=== PATIENT | male | born 1965 | race Caucasian/White ===

== ENCOUNTER 2017-03-25 18:39 | Inpatient (IN) | payer SELFPAY ==
[~2017-03-25] VITALS: Ht 182.9 cm; Wt 75.3 kg
[2017-03-25] MEDS ORDERED: IV NORMAL SALINE 1000ML BAG 1,000 ML IV ONE (19:00)
[2017-03-25] MEDS ORDERED: MORPHINE SULFATE 4 MG/ML DISP.SYRIN. IV PRN ×2 (19:00)
[2017-03-25] MEDS ORDERED: fentaNYL PF VIAL 100 MCG/2 ML VIAL IV PRN ×2 (19:00)
[2017-03-25] MEDS: PROPOFOL 100 ML IV PRN (19:00)
[2017-03-25 19:10] LABS: BASO % 0 % (0-3); EOS % 5 % (0-3); HEMATOCRIT 48.6 % (39.0-53.0); HEMOGLOBIN 16.7 g/dL (13.0-17.5); LYMPH # 5.4 x10^3/uL (1.0-4.8); LYMPH % 44 % (24-48); MEAN CORPUSCULAR HEMOGLOBIN 32 pg (25-35); MEAN CORPUSCULAR HGB CONC 34 g/dL (31-37); MEAN CORPUSCULAR VOLUME 93 fL (79-100); MONO % 11 % (0-9); NEUT % 41 % (31-73); PLATELET COUNT 294 x10^3/uL (140-400); RED BLOOD COUNT 5.25 x10^6/uL (4.30-5.70); RED CELL DISTRIBUTION WIDTH 13.7 % (11.5-14.5); WHITE BLOOD COUNT 12.3 x10^3/uL (4.0-11.0)
[2017-03-25] MEDS ORDERED: SUCCINYLCHOLINE 200 MG/10 ML VIAL. IV ONE (19:15)
[2017-03-25] MEDS ORDERED: ETOMIDATE 20 MG/10 ML VIAL. IV ONE (19:15)
[2017-03-25 19:22] LABS: ANION GAP 12 (6-14); BLOOD UREA NITROGEN 10 mg/dL (8-26); CALCIUM 8.7 mg/dL (8.5-10.1); CARBON DIOXIDE 28 mmol/L (21-32); CHLORIDE 107 mmol/L (98-107); CREATININE 0.8 mg/dL (0.7-1.3); GFR 102.3; GLUCOSE 95 mg/dL (70-99); POTASSIUM 3.7 mmol/L (3.5-5.1); SODIUM 147 mmol/L (136-145)
[2017-03-25 19:28] LABS: ALBUMIN 3.7 g/dL (3.4-5.0); ALK PHOS 66 U/L (46-116); ALT (SGPT) 52 U/L (16-63); AST (SGOT) 34 U/L (15-37); DIRECT BILIRUBIN < 0.1 mg/dL (0.0-0.2); TOTAL BILIRUBIN 0.2 mg/dL (0.2-1.0); TOTAL PROTEIN 7.4 g/dL (6.4-8.2)
[2017-03-25 19:35] LABS: ETHANOL 472 mg/dL (0-10)
[2017-03-25 19:44] LABS: BILIRUBIN,URINE NEGATIVE (NEG); GLUCOSE,URINE NEGATIVE (NEG); NITRITE,URINE NEGATIVE (NEG); PH,URINE 5.5; PROTEIN,URINE NEGATIVE (NEG-TRACE); UROBILINOGEN,URINE 0.2 mg/dL (0.2 mg/dL)
--- NOTE | 2017-03-25 19:44 | RAD ---
CT of the head without contrast History:decreased mental status, etoh, intubated, no priors. Intoxication. Decreased mental status. Technique: Standard noncontrast images are obtained. Exposure: One or more of the following individualized dose reduction techniques were utilized for this examination: 1. Automated exposure control 2. Adjustment of the mA and/or kV according to patient size 3. Use of iterative reconstruction technique. Comparison: None Findings: Posterior fossa is unremarkable. No evidence of acute intracranial hemorrhage, mass effect, midline shift or abnormal extra-axial fluid collection. Redman-white matter distinction is intact. Ventricles unremarkable and symmetric Visualized orbits are unremarkable. Visualized paranasal sinuses and mastoids are clear. No acute calvarial abnormality Impression: No evidence of acute intracranial abnormality. Electronically signed by: Gene Walden MD (03/25/2017 7:40 PM) [facility]
[2017-03-25 19:49] LABS: BACTERIA,URINE 0 /HPF (0-FEW); RBC,URINE OCC /HPF (0-2); WBC,URINE OCC /HPF (0-4)
[2017-03-25 19:51] LABS: BARBITURATES NEG (NEG); BENZODIAZEPINES NEG (NEG); CANNABINOIDS NEG (NEG); COCAINE NEG (NEG); METHADONE NEG (NEG); OPIATES NEG (NEG); PHENCYCLIDINE NEG (NEG)
--- NOTE | 2017-03-25 19:55 | PHYS DOC ---
Past Medical History Past Medical History: Unknown Additional Past Surgical Histo: UNABLE TO ASSESS Alcohol Use: Heavy Social History Narrative: UNKNOWN DRUG USE Adult General Chief Complaint Chief Complaint: ALCOHOL INTOXICATION HPI HPI 51-year-old male with a history of alcoholism presenting to the emergency department today by EMS after being found unresponsive. The patient reportedly has been drinking a lot of vodka today. Bystanders on the scene deny the patient have any drug history of IV drug use. Upon arrival the patient tolerating his secretions and is not protecting his airway. He does not withdraw to painful stimuli. He does not open his eyes to painful stimuli. He makes no verbal sounds. He is drooling upon arrival. Unfortunately because of the patient's mental status no further history could be given other than EMSs at this time. Onset today. Location generalized. Duration constant. No alleviating factors. Medical history, allergy list, surgical history, social history and review of systems were unable be fluid be obtained because the patient is currently unable to speak because of his mental status. The only available historians currently are EMS who are unsure of this information. ED course 51-year-old gentleman presenting to the emergency department with severe alcohol intoxication. Upon arrival the patient was not protecting his airway so the patient was intubated. Head CT, blood sugar, aspirin and Tylenol, and other blood work obtained which showed significant alcohol intoxication. There is not an osmolar gap. History not suggestive of overdose. no bottles at the scene or suicide note. Tylenol negative. Aspirin level minimal. CO2 normal. ABG obtained which showed mild acute respiratory acidosis. Then settings changed by respiratory therapy. Otherwise remainder of the workup is unremarkable including a negative head CT. Postintubation chest x-ray obtained and endotracheal tube is in satisfactory position. The patient was then admitted to our intensive care unit for further evaluation workup and care. Review of Systems Review of Systems See above Current Medications Current Medications Current Medications Medications (Trade) Dose Ordered Sig/Mike Start Time Stop Time Status Last Admin Dose Admin Etomidate (Amidate) 20 mg 1X ONCE 03/25/17 19:15 03/25/17 19:16 DC 03/25/17 18:53 20 MG Fentanyl Citrate (Fentanyl 2ml Vial) 50 mcg PRN Q1HR PRN 03/25/17 19:00 Morphine Sulfate 4 mg PRN Q1HR PRN 03/25/17 19:00 Propofol 100 ml @ 0 mls/hr CONT PRN 03/25/17 19:00 03/25/17 19:00 2.4 MLS/HR Sodium Chloride 1,000 ml @ 1,000 mls/hr 1X ONCE 03/25/17 19:00 03/25/17 19:59 DC 03/25/17 19:00 1,000 MLS/HR Succinylcholine Chloride (Anectine) 100 mg 1X ONCE 03/25/17 19:15 03/25/17 19:16 DC 03/25/17 18:53 100 MG Allergies Allergies Allergies Coded Allergies Type Severity Reaction Last Updated Verified Unable to Assess 03/25/17 No Physical Exam Physical Exam Constitutional: Well developed, well nourished, no acute distress, non-toxic appearance. [] HENT: Normocephalic, atraumatic, bilateral external ears normal, oropharynx moist, no oral exudates, nose normal. [] Eyes: PERRLA, EOMI, conjunctiva normal, no discharge. [] Neck: Normal range of motion, no tenderness, supple, no stridor. [] Cardiovascular:Heart rate regular rhythm, no murmur [] Lungs & Thorax: Bilateral breath sounds clear to auscultation [] Abdomen: Bowel sounds normal, soft, no tenderness, no masses, no pulsatile masses. [] Skin: Warm, dry, no erythema, no rash. [] Back: No tenderness, no CVA tenderness. [] Extremities: No tenderness, no cyanosis, no clubbing, ROM intact, no edema. [] Neurologic: Alert and oriented X 3, normal motor function, normal sensory function, no focal deficits noted. [] Psychologic: Affect normal, judgement normal, mood normal. [] Current Patient Data Vital Signs Vital Signs Date Time Temp Pulse Resp B/P (MAP) Pulse Ox O2 Delivery O2 Flow Rate FiO2 03/25/17 19:37 88 20 123/80 (94) 100 Ventilator 03/25/17 18:57 15.0 03/25/17 18:40 97.4 97.4 Lab Values Laboratory Tests Test 03/25/17 18:42 03/25/17 18:57 03/25/17 19:39 White Blood Count 12.3 x10^3/uL (4.0-11.0) H Red Blood Count 5.25 x10^6/uL (4.30-5.70) Hemoglobin 16.7 g/dL (13.0-17.5) Hematocrit 48.6 % (39.0-53.0) Mean Corpuscular Volume 93 fL (79-100) Mean Corpuscular Hemoglobin 32 pg (25-35) Mean Corpuscular Hemoglobin Concent 34 g/dL (31-37) Red Cell Distribution Width 13.7 % (11.5-14.5) Platelet Count 294 x10^3/uL (140-400) Neutrophils (%) (Auto) 41 % (31-73) Lymphocytes (%) (Auto) 44 % (24-48) Monocytes (%) (Auto) 11 % (0-9) H Eosinophils (%) (Auto) 5 % (0-3) H Basophils (%) (Auto) 0 % (0-3) Neutrophils # (Auto) 5.0 x10^3uL (1.8-7.7) Lymphocytes # (Auto) 5.4 x10^3/uL (1.0-4.8) H Monocytes # (Auto) 1.3 x10^3/uL (0.0-1.1) H Eosinophils # (Auto) 0.6 x10^3/uL (0.0-0.7) Basophils # (Auto) 0.0 x10^3/uL (0.0-0.2) Prothrombin Time 13.0 SEC (11.7-14.0) Prothrombin Time INR 1.0 (0.8-1.1) PTT 26 SEC (24-38) Sodium Level 147 mmol/L (136-145) H Potassium Level 3.7 mmol/L (3.5-5.1) Chloride Level 107 mmol/L (98-107) Carbon Dioxide Level 28 mmol/L (21-32) Anion Gap 12 (6-14) Blood Urea Nitrogen 10 mg/dL (8-26) Creatinine 0.8 mg/dL (0.7-1.3) Estimated GFR (Cockcroft-Gault) 102.3 Glucose Level 95 mg/dL (70-99) Serum Osmolality 426 mOsm/Kg (279-304) H Calcium Level 8.7 mg/dL (8.5-10.1) Total Bilirubin 0.2 mg/dL (0.2-1.0) Direct Bilirubin < 0.1 mg/dL (0.0-0.2) Aspartate Amino Transferase (AST) 34 U/L (15-37) Alanine Aminotransferase (ALT) 52 U/L (16-63) Alkaline Phosphatase 66 U/L (46-116) Total Protein 7.4 g/dL (6.4-8.2) Albumin 3.7 g/dL (3.4-5.0) Lipase 286 U/L (73-393) Salicylates Level 6.0 mg/dL (2.8-20.0) Salicylate Last Dose Date Salicylate Last Dose Time Acetaminophen Level < 2 mcg/ml (10-30) L Acetaminophen Last Dose Date Acetaminophen Last Dose Time Ethyl Alcohol Level 472 mg/dL (0-10) *H O2 Saturation 99 % (92-99) Arterial Blood pH 7.26 (7.35-7.45) L Arterial Blood pCO2 at Patient Temp 59 mmHg (35-46) H Arterial Blood pO2 at Patient Temp > 503 mmHg (75-108) H Arterial Blood HCO3 26 mmol/L (21-28) Arterial Blood Base Excess -2 mmol/L (-3-3) Oxyhemoglobin 98.1 % Methemoglobin 0.4 % (0.0-1.9) Carbon Monoxide, Quantitative 0.7 % (0.0-1.9) FiO2 100.0 Urine Collection Type Unknown Urine Color Yellow Urine Clarity Clear Urine pH 5.5 Urine Specific Gratis 1.010 Urine Protein Negative mg/dL (NEG-TRACE) Urine Glucose (UA) Negative mg/dL (NEG) Urine Ketones (Stick) Negative mg/dL (NEG) Urine Blood Negative (NEG) Urine Nitrite Negative (NEG) Urine Bilirubin Negative (NEG) Urine Urobilinogen Dipstick 0.2 mg/dL (0.2 mg/dL) Urine Leukocyte Esterase Negative (NEG) Urine RBC Occ /HPF (0-2) Urine WBC Occ /HPF (0-4) Urine Bacteria 0 /HPF (0-FEW) Urine Mucus Slight /LPF Urine Opiates Screen Neg (NEG) Urine Methadone Screen Neg (NEG) Urine Barbiturates Neg (NEG) Urine Phencyclidine Screen Neg (NEG) Urine Amphetamine/Methamphetamine Neg (NEG) Urine Benzodiazepines Screen Neg (NEG) Urine Cocaine Screen Neg (NEG) Urine Cannabinoids Screen Neg (NEG) Urine Ethyl Alcohol Pos (NEG) Laboratory Tests 03/25/17 18:42 Laboratory Tests 03/25/17 18:42 EKG EKG [] Radiology/Procedures Radiology/Procedures [] Course & Med Decision Making Course & Med Decision Making Pertinent Labs and Imaging studies reviewed. (See chart for details) [] Dragon Disclaimer Dragon Disclaimer This electronic medical record was generated, in whole or in part, using a voice recognition dictation system. Departure Departure Referrals: NO PCP (PCP) Critical Care Time Critical care time was [35] minutes exclusive of procedures. Time was spent evaluating the patient, reviewing chest x-ray, reviewing blood work, discussing with the meaning provider, and documenting. Intubation Procedure Intubation Procedure Intub Indication: Respiratory failure Consent: Unable to give consent due to emergent nature. Medications Used: see nursing note Procedure: The patient was placed in the appropriate position. Intubation was performed visualization using a 7-1/2 endotracheal tube. Endotracheal tube secured at 2 6 cm at the teeth. Initial confirmation of placement included bilateral breath sounds, tube fogging, adequate chest rise, adequate pulse oximetry reading. A chest x-ray to verify correct placement of the tube showed appropriate tube position. The patient tolerated the procedure well. Complications: none. GALE HINKLE MD Mar 25, 2017 19:55
[2017-03-25 19:57] LABS: BASE EXCESS COOX -2 mmol/L (-3-3); CARBON MONOXIDE 0.7 % (0.0-1.9); HCO3 COOX 26 mmol/L (21-28); METHEMOGLOBIN 0.4 % (0.0-1.9); OXYHEMOGLOBIN 98.1 %; PCO2 COOX 59 mmHg (35-46); PH COOX 7.26 (7.35-7.45); PO2 COOX > 503 mmHg (75-108); SAT O2 COOX 99 % (92-99); TOTAL HEMOGLOBIN 16.6 g/dL
--- NOTE | 2017-03-25 19:59 | PDOC1 ---
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 NO family at bedside, rest of labs pending, CBC WBC 12,3 , BMP pending, CXR ok Propofol gtt with good VS No prev records here Past Medical History Cardiovascular: No pertinent hx Pulmonary: No pertinent hx GI: No pertinent hx Heme/Onc: No pertinent hx Hepatobiliary: No pertinent hx Psych: No pertinent hx Rheumatologic: No pertinent hx Infectious disease: No pertinent hx ENT: No pertinent hx Renal/: No pertinent hx Endocrine: No pertinent hx Dermatology: No pertinent hx Past Surgical History Past Surgical History: No pertinent history Family History Family History: Family History Unknown Social History Smoke: No ALCOHOL: heavy Drugs: None Current Medications Current Medications Current Medications Sodium Chloride 1,000 ml @ 1,000 mls/hr 1X ONCE IV Last administered on 03/25 19:00; Start 03/25/17 at 19:00; Stop 03/25/17 at 19:59 Etomidate (Amidate) 20 mg 1X ONCE IV Last administered on 03/25/17 18:53; Start 03/25/17 at 19:15; Stop 03/25/17 at 19:16; Status DC Succinylcholine Chloride (Anectine) 100 mg 1X ONCE IV Last administered on 18:53; Start 03/25/17 at 19:15; Stop 03/25/17 at 19:16; Status DC Propofol 100 ml @ 0 mls/hr CONT PRN IV PER PROTOCOL Last administered on 19:00; Start 03/25/17 at 19:00 Fentanyl Citrate (Fentanyl 2ml Vial) 25 mcg PRN Q1HR PRN IV see comments; Start 03/25/17 at 19:00 Fentanyl Citrate (Fentanyl 2ml Vial) 50 mcg PRN Q1HR PRN IV see comments; Start 03/25/17 at 19:00 Chlorhexidine Gluconate (Peridex) 15 ml BID MM ; Start 03/25/17 at 21:00 Morphine Sulfate 2 mg PRN Q1HR PRN IV see comments; Start 03/25/17 at 19:00 Morphine Sulfate 4 mg PRN Q1HR PRN IV see comments; Start 03/25/17 at 19:00 Allergies Allergies: Coded Allergies: Unable to Assess (Unverified , 03/25/17) ROS Review of System intubated Physical Exam General: No acute distress, Other (intubated) HEENT: PERRLA Lungs: Clear to auscultation, Normal air movement Heart: S1S2, RRR, no thrills, no rubs, no gallops, no murmurs Cardiovascular: S1, S2 Abdomen: Normal bowel sounds, Soft, No tenderness, No hepatosplenomegaly, No masses Male Genitals Exam: normal genitalia, normal prostate Rectal Exam: not examined PELVIC: Nml ext genitalia Extremities: No clubbing, No cyanosis, No edema, Normal pulses, No tenderness/ swelling Skin: Other (multiple tattoes) Neuro: Normal gait, Normal speech, Strength at 5/5 X4 ext, Normal tone, Sensation intact, Cranial nerves 3-12 NL, Reflexes 2+ Psych/Mental Status: Mental status NL, Mood NL Vitals Vitals Vital Signs Date Time Temp Pulse Resp B/P (MAP) Pulse Ox O2 Delivery O2 Flow Rate FiO2 03/25/17 19:41 100 Ventilator 03/25/17 18:40 97.4 87 16 130/98 (109) 15.0 97.4 Labs Labs Laboratory Tests Test 03/25/17 18:42 03/25/17 19:39 White Blood Count 12.3 x10^3/uL (4.0-11.0) Red Blood Count 5.25 x10^6/uL (4.30-5.70) Hemoglobin 16.7 g/dL (13.0-17.5) Hematocrit 48.6 % (39.0-53.0) Mean Corpuscular Volume 93 fL (79-100) Mean Corpuscular Hemoglobin 32 pg (25-35) Mean Corpuscular Hemoglobin Concent 34 g/dL (31-37) Red Cell Distribution Width 13.7 % (11.5-14.5) Platelet Count 294 x10^3/uL (140-400) Neutrophils (%) (Auto) 41 % (31-73) Lymphocytes (%) (Auto) 44 % (24-48) Monocytes (%) (Auto) 11 % (0-9) Eosinophils (%) (Auto) 5 % (0-3) Basophils (%) (Auto) 0 % (0-3) Neutrophils # (Auto) 5.0 x10^3uL (1.8-7.7) Lymphocytes # (Auto) 5.4 x10^3/uL (1.0-4.8) Monocytes # (Auto) 1.3 x10^3/uL (0.0-1.1) Eosinophils # (Auto) 0.6 x10^3/uL (0.0-0.7) Basophils # (Auto) 0.0 x10^3/uL (0.0-0.2) Prothrombin Time 13.0 SEC (11.7-14.0) Prothromb Time International Ratio 1.0 (0.8-1.1) Activated Partial Thromboplast Time 26 SEC (24-38) Sodium Level 147 mmol/L (136-145) Potassium Level 3.7 mmol/L (3.5-5.1) Chloride Level 107 mmol/L (98-107) Carbon Dioxide Level 28 mmol/L (21-32) Anion Gap 12 (6-14) Blood Urea Nitrogen 10 mg/dL (8-26) Creatinine 0.8 mg/dL (0.7-1.3) Estimated GFR (Cockcroft-Gault) 102.3 Glucose Level 95 mg/dL (70-99) Serum Osmolality 426 mOsm/Kg (279-304) Calcium Level 8.7 mg/dL (8.5-10.1) Total Bilirubin 0.2 mg/dL (0.2-1.0) Direct Bilirubin < 0.1 mg/dL (0.0-0.2) Aspartate Amino Transf (AST/SGOT) 34 U/L (15-37) Alanine Aminotransferase (ALT/SGPT) 52 U/L (16-63) Alkaline Phosphatase 66 U/L (46-116) Total Protein 7.4 g/dL (6.4-8.2) Albumin 3.7 g/dL (3.4-5.0) Lipase 286 U/L (73-393) Salicylates Level 6.0 mg/dL (2.8-20.0) Salicylate Last Dose Date Salicylate Last Dose Time Acetaminophen Level < 2 mcg/ml (10-30) Acetaminophen Last Dose Date Acetaminophen Last Dose Time Ethyl Alcohol Level 472 mg/dL (0-10) Urine Collection Type Unknown Urine Color Yellow Urine Clarity Clear Urine pH 5.5 Urine Specific Hennessey 1.010 Urine Protein Negative mg/dL (NEG-TRACE) Urine Glucose (UA) Negative mg/dL (NEG) Urine Ketones (Stick) Negative mg/dL (NEG) Urine Blood Negative (NEG) Urine Nitrite Negative (NEG) Urine Bilirubin Negative (NEG) Urine Urobilinogen Dipstick 0.2 mg/dL (0.2 mg/dL) Urine Leukocyte Esterase Negative (NEG) Urine RBC Occ /HPF (0-2) Urine WBC Occ /HPF (0-4) Urine Bacteria 0 /HPF (0-FEW) Urine Mucus Slight /LPF Urine Opiates Screen Neg (NEG) Urine Methadone Screen Neg (NEG) Urine Barbiturates Neg (NEG) Urine Phencyclidine Screen Neg (NEG) Urine Amphetamine/Methamphetamine Neg (NEG) Urine Benzodiazepines Screen Neg (NEG) Urine Cocaine Screen Neg (NEG) Urine Cannabinoids Screen Neg (NEG) Urine Ethyl Alcohol Pos (NEG) Laboratory Tests Test 03/25/17 18:42 03/25/17 19:39 White Blood Count 12.3 x10^3/uL (4.0-11.0) Red Blood Count 5.25 x10^6/uL (4.30-5.70) Hemoglobin 16.7 g/dL (13.0-17.5) Hematocrit 48.6 % (39.0-53.0) Mean Corpuscular Volume 93 fL (79-100) Mean Corpuscular Hemoglobin 32 pg (25-35) Mean Corpuscular Hemoglobin Concent 34 g/dL (31-37) Red Cell Distribution Width 13.7 % (11.5-14.5) Platelet Count 294 x10^3/uL (140-400) Neutrophils (%) (Auto) 41 % (31-73) Lymphocytes (%) (Auto) 44 % (24-48) Monocytes (%) (Auto) 11 % (0-9) Eosinophils (%) (Auto) 5 % (0-3) Basophils (%) (Auto) 0 % (0-3) Neutrophils # (Auto) 5.0 x10^3uL (1.8-7.7) Lymphocytes # (Auto) 5.4 x10^3/uL (1.0-4.8) Monocytes # (Auto) 1.3 x10^3/uL (0.0-1.1) Eosinophils # (Auto) 0.6 x10^3/uL (0.0-0.7) Basophils # (Auto) 0.0 x10^3/uL (0.0-0.2) Prothrombin Time 13.0 SEC (11.7-14.0) Prothromb Time International Ratio 1.0 (0.8-1.1) Activated Partial Thromboplast Time 26 SEC (24-38) Sodium Level 147 mmol/L (136-145) Potassium Level 3.7 mmol/L (3.5-5.1) Chloride Level 107 mmol/L (98-107) Carbon Dioxide Level 28 mmol/L (21-32) Anion Gap 12 (6-14) Blood Urea Nitrogen 10 mg/dL (8-26) Creatinine 0.8 mg/dL (0.7-1.3) Estimated GFR (Cockcroft-Gault) 102.3 Glucose Level 95 mg/dL (70-99) Serum Osmolality 426 mOsm/Kg (279-304) Calcium Level 8.7 mg/dL (8.5-10.1) Total Bilirubin 0.2 mg/dL (0.2-1.0) Direct Bilirubin < 0.1 mg/dL (0.0-0.2) Aspartate Amino Transf (AST/SGOT) 34 U/L (15-37) Alanine Aminotransferase (ALT/SGPT) 52 U/L (16-63) Alkaline Phosphatase 66 U/L (46-116) Total Protein 7.4 g/dL (6.4-8.2) Albumin 3.7 g/dL (3.4-5.0) Lipase 286 U/L (73-393) Salicylates Level 6.0 mg/dL (2.8-20.0) Salicylate Last Dose Date Salicylate Last Dose Time Acetaminophen Level < 2 mcg/ml (10-30) Acetaminophen Last Dose Date Acetaminophen Last Dose Time Ethyl Alcohol Level 472 mg/dL (0-10) Urine Collection Type Unknown Urine Color Yellow Urine Clarity Clear Urine pH 5.5 Urine Specific Hennessey 1.010 Urine Protein Negative mg/dL (NEG-TRACE) Urine Glucose (UA) Negative mg/dL (NEG) Urine Ketones (Stick) Negative mg/dL (NEG) Urine Blood Negative (NEG) Urine Nitrite Negative (NEG) Urine Bilirubin Negative (NEG) Urine Urobilinogen Dipstick 0.2 mg/dL (0.2 mg/dL) Urine Leukocyte Esterase Negative (NEG) Urine RBC Occ /HPF (0-2) Urine WBC Occ /HPF (0-4) Urine Bacteria 0 /HPF (0-FEW) Urine Mucus Slight /LPF Urine Opiates Screen Neg (NEG) Urine Methadone Screen Neg (NEG) Urine Barbiturates Neg (NEG) Urine Phencyclidine Screen Neg (NEG) Urine Amphetamine/Methamphetamine Neg (NEG) Urine Benzodiazepines Screen Neg (NEG) Urine Cocaine Screen Neg (NEG) Urine Cannabinoids Screen Neg (NEG) Urine Ethyl Alcohol Pos (NEG) VTE Prophylaxis Ordered VTE Prophylaxis Devices: Yes VTE Pharmacological Prophylaxi: Yes Assessment/Plan Assessment/Plan 1. Acute toxic alcohol intox intubated for airway protection 2. Inc serum osmolality sec to etoh 3 MIld to moc pCM, highly likely 4. Mltiple tatooes PLAN; Admit ICU Pulmo for vent mx Vent bundle PPI and dvt ppx CIWa when extubated Needs SW for AAA referrral Seen in ER 1 NUVIA THOMPSON MD Mar 25, 2017 19:59
[2017-03-25 21:00] VITALS: BP 86/57
[2017-03-25] MEDS ORDERED: THIAMINE IV SCH (21:00)
[2017-03-25] MEDS ORDERED: [UNRECOGNIZED DRUG - OTHER] IV SCH (21:00)
[2017-03-25] MEDS ORDERED: MULTIVIT INFUSN ADULT K IV SCH (21:00)
[2017-03-25 22:00] VITALS: BP 80/53
[2017-03-25 23:00] VITALS: BP 85/58
[2017-03-26] VITALS (18 sets, daily range): BP systolic 91–140; BP diastolic 58–80
[2017-03-26] MEDS: CHLORHEXIDINE 0.12% 15 ML MOUTHWASH. MM SCH ×3 (00:18→21:00)
[2017-03-26 00:19] LABS: HCO3 ABG 23 mmol/L (21-28); PCO2 ABG 44 mmHg (35-46); PH ABG 7.33 (7.35-7.45); PO2 ABG 109 mmHg (75-108); SAT O2 ABG 97 % (92-99)
[2017-03-26] MEDS: ENOXAPARIN 40 MG/0.4 ML SYRINGE. SQ SCH ×2 (00:19→22:26)
[2017-03-26] MEDS: FAMOTIDINE 20 MG/2 ML VIAL IVP SCH ×3 (00:20→22:27)
[2017-03-26 00:25] LABS: FIO2 ABG 50
[2017-03-26] MEDS: PROPOFOL 100 ML IV PRN ×4 (00:28→10:55)
--- NOTE | 2017-03-26 06:35 | EKG ---
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
[2017-03-26 08:02] LABS: HCO3 ABG 23 mmol/L (21-28); PCO2 ABG 40 mmHg (35-46); PH ABG 7.37 (7.35-7.45); PO2 ABG 141 mmHg (75-108); SAT O2 ABG 98 % (92-99)
[2017-03-26 08:04] LABS: FIO2 ABG 50
--- NOTE | 2017-03-26 08:06 | RAD ---
Portable chest, 03/25/2017, 7:22 PM History: Check line placement, chest pain No previous chest radiographs are available for comparison purposes. The tip of the ET tube lies at the level of thoracic inlet, approximately 12 cm above the mary jane. The tip of the NG tube lies in the distal esophagus. A partially visualized tube projected over the lateral aspect of the right upper chest may lie on the surface of the patient. Clinical correlation is suggested. The heart size and pulmonary vascularity are within normal limits. There is a small nodule projected over the left lower chest laterally. This may be a nipple shadow or a true pulmonary nodule. No pulmonary consolidation is seen. There is no evidence of pleural fluid. Moderate spurring is present in the spine. IMPRESSION: 1. High position of the ET tube and the NG tube as described above. 2. Probable left lung nodule. 3. No acute infiltrates.
[2017-03-26 08:16] LABS: BASO % 0 % (0-3); EOS % 3 % (0-3); HEMATOCRIT 42.6 % (39.0-53.0); HEMOGLOBIN 14.3 g/dL (13.0-17.5); LYMPH # 2.8 x10^3/uL (1.0-4.8); LYMPH % 27 % (24-48); MEAN CORPUSCULAR HEMOGLOBIN 31 pg (25-35); MEAN CORPUSCULAR HGB CONC 34 g/dL (31-37); MEAN CORPUSCULAR VOLUME 93 fL (79-100); MONO % 9 % (0-9); NEUT % 62 % (31-73); PLATELET COUNT 256 x10^3/uL (140-400); RED BLOOD COUNT 4.58 x10^6/uL (4.30-5.70); RED CELL DISTRIBUTION WIDTH 13.8 % (11.5-14.5); WHITE BLOOD COUNT 10.3 x10^3/uL (4.0-11.0)
[2017-03-26 08:35] LABS: ALBUMIN 3.1 g/dL (3.4-5.0); ALBUMIN/GLOBULIN RATIO 0.9 (1.0-1.7); CALCIUM 7.8 mg/dL (8.5-10.1); CREATININE 0.8 mg/dL (0.7-1.3); GFR 102.3; POTASSIUM 3.6 mmol/L (3.5-5.1); TOTAL BILIRUBIN 0.1 mg/dL (0.2-1.0); TOTAL PROTEIN 6.4 g/dL (6.4-8.2)
--- NOTE | 2017-03-26 09:12 | RAD ---
Portable chest, 03/25/2017, 7:31 PM: History: Check tube placements Comparison is made to the study of earlier the same day. The ET tube has been advanced with its tip now lying 8 cm above the mary jane. The NG tube has been advanced slightly, although its tip still lies in the distal esophagus above the level of the GE junction. The heart size and pulmonary vascularity are normal. No pulmonary infiltrates are seen. A nodular opacity is again noted projected over left lower chest. There is no evidence of pleural fluid or pneumothorax. IMPRESSION: 1. The ET tube tip now lies 8 cm above the mary jane. 2. Persistent malposition of the NG tube with its tip lying in the distal esophagus.
--- NOTE | 2017-03-26 09:15 | PDOC ---
PROGRESS NOTES Chief Complaint Chief Complaint acute respiratory acidosis acute hypercarbic respiratory failure Acute toxic alcohol intox intubated for airway protection hyper osmolality sec to etoh History of Present Illness History of Present Illness Admitted ICU Pulmo for vent mx Vent bundle, on propofol, will wean aggressive fluids this AM Vitals Vitals Vital Signs Date Time Temp Pulse Resp B/P (MAP) Pulse Ox O2 Delivery O2 Flow Rate FiO2 03/26/17 07:38 100 Ventilator 03/26/17 06:14 15.0 03/26/17 06:00 78 20 100/64 (76) 03/26/17 03:00 98.0 98.0 Physical Exam Physical Exam intubated General: No acute distress, Other (intubated) Abdomen: Normal bowel sounds, Soft, No masses Extremities: No clubbing, No cyanosis, No edema, Normal pulses, No tenderness/ swelling Skin: No rashes, Other (multiple tattoes) Labs LABS Laboratory Tests Test 03/25/17 18:42 03/25/17 18:57 03/25/17 19:39 03/26/17 00:15 White Blood Count 12.3 x10^3/uL (4.0-11.0) Red Blood Count 5.25 x10^6/uL (4.30-5.70) Hemoglobin 16.7 g/dL (13.0-17.5) Hematocrit 48.6 % (39.0-53.0) Mean Corpuscular Volume 93 fL (79-100) Mean Corpuscular Hemoglobin 32 pg (25-35) Mean Corpuscular Hemoglobin Concent 34 g/dL (31-37) Red Cell Distribution Width 13.7 % (11.5-14.5) Platelet Count 294 x10^3/uL (140-400) Neutrophils (%) (Auto) 41 % (31-73) Lymphocytes (%) (Auto) 44 % (24-48) Monocytes (%) (Auto) 11 % (0-9) Eosinophils (%) (Auto) 5 % (0-3) Basophils (%) (Auto) 0 % (0-3) Neutrophils # (Auto) 5.0 x10^3uL (1.8-7.7) Lymphocytes # (Auto) 5.4 x10^3/uL (1.0-4.8) Monocytes # (Auto) 1.3 x10^3/uL (0.0-1.1) Eosinophils # (Auto) 0.6 x10^3/uL (0.0-0.7) Basophils # (Auto) 0.0 x10^3/uL (0.0-0.2) Prothrombin Time 13.0 SEC (11.7-14.0) Prothromb Time International Ratio 1.0 (0.8-1.1) Activated Partial Thromboplast Time 26 SEC (24-38) Sodium Level 147 mmol/L (136-145) Potassium Level 3.7 mmol/L (3.5-5.1) Chloride Level 107 mmol/L (98-107) Carbon Dioxide Level 28 mmol/L (21-32) Anion Gap 12 (6-14) Blood Urea Nitrogen 10 mg/dL (8-26) Creatinine 0.8 mg/dL (0.7-1.3) Estimated GFR (Cockcroft-Gault) 102.3 Glucose Level 95 mg/dL (70-99) Serum Osmolality 426 mOsm/Kg (279-304) Calcium Level 8.7 mg/dL (8.5-10.1) Total Bilirubin 0.2 mg/dL (0.2-1.0) Direct Bilirubin < 0.1 mg/dL (0.0-0.2) Aspartate Amino Transf (AST/SGOT) 34 U/L (15-37) Alanine Aminotransferase (ALT/SGPT) 52 U/L (16-63) Alkaline Phosphatase 66 U/L (46-116) Total Protein 7.4 g/dL (6.4-8.2) Albumin 3.7 g/dL (3.4-5.0) Lipase 286 U/L (73-393) Salicylates Level 6.0 mg/dL (2.8-20.0) Salicylate Last Dose Date Salicylate Last Dose Time Acetaminophen Level < 2 mcg/ml (10-30) Acetaminophen Last Dose Date Acetaminophen Last Dose Time Ethyl Alcohol Level 472 mg/dL (0-10) O2 Saturation 99 % (92-99) 97 % (92-99) Arterial Blood pH 7.26 (7.35-7.45) 7.33 (7.35-7.45) Arterial Blood pCO2 at Patient Temp 59 mmHg (35-46) 44 mmHg (35-46) Arterial Blood pO2 at Patient Temp > 503 mmHg (75-108) 109 mmHg (75-108) Arterial Blood HCO3 26 mmol/L (21-28) 23 mmol/L (21-28) Arterial Blood Base Excess -2 mmol/L (-3-3) -3 mmol/L (-3-3) Oxyhemoglobin 98.1 % Methemoglobin 0.4 % (0.0-1.9) Carbon Monoxide, Quantitative 0.7 % (0.0-1.9) FiO2 100.0 50 Urine Collection Type Unknown Urine Color Yellow Urine Clarity Clear Urine pH 5.5 Urine Specific Excel 1.010 Urine Protein Negative mg/dL (NEG-TRACE) Urine Glucose (UA) Negative mg/dL (NEG) Urine Ketones (Stick) Negative mg/dL (NEG) Urine Blood Negative (NEG) Urine Nitrite Negative (NEG) Urine Bilirubin Negative (NEG) Urine Urobilinogen Dipstick 0.2 mg/dL (0.2 mg/dL) Urine Leukocyte Esterase Negative (NEG) Urine RBC Occ /HPF (0-2) Urine WBC Occ /HPF (0-4) Urine Bacteria 0 /HPF (0-FEW) Urine Mucus Slight /LPF Urine Opiates Screen Neg (NEG) Urine Methadone Screen Neg (NEG) Urine Barbiturates Neg (NEG) Urine Phencyclidine Screen Neg (NEG) Urine Amphetamine/Methamphetamine Neg (NEG) Urine Benzodiazepines Screen Neg (NEG) Urine Cocaine Screen Neg (NEG) Urine Cannabinoids Screen Neg (NEG) Urine Ethyl Alcohol Pos (NEG) Test 03/26/17 07:11 03/26/17 07:40 03/26/17 07:55 Sodium Level 145 mmol/L (136-145) Potassium Level 3.6 mmol/L (3.5-5.1) Chloride Level 110 mmol/L (98-107) Carbon Dioxide Level 24 mmol/L (21-32) Anion Gap 11 (6-14) Blood Urea Nitrogen 12 mg/dL (8-26) Creatinine 0.8 mg/dL (0.7-1.3) Estimated GFR (Cockcroft-Gault) 102.3 BUN/Creatinine Ratio 15 (6-20) Glucose Level 102 mg/dL (70-99) Calcium Level 7.8 mg/dL (8.5-10.1) Total Bilirubin 0.1 mg/dL (0.2-1.0) Aspartate Amino Transf (AST/SGOT) 30 U/L (15-37) Alanine Aminotransferase (ALT/SGPT) 46 U/L (16-63) Alkaline Phosphatase 56 U/L (46-116) Total Protein 6.4 g/dL (6.4-8.2) Albumin 3.1 g/dL (3.4-5.0) Albumin/Globulin Ratio 0.9 (1.0-1.7) O2 Saturation 98 % (92-99) Arterial Blood pH 7.37 (7.35-7.45) Arterial Blood pCO2 at Patient Temp 40 mmHg (35-46) Arterial Blood pO2 at Patient Temp 141 mmHg (75-108) Arterial Blood HCO3 23 mmol/L (21-28) Arterial Blood Base Excess -3 mmol/L (-3-3) FiO2 50 White Blood Count 10.3 x10^3/uL (4.0-11.0) Red Blood Count 4.58 x10^6/uL (4.30-5.70) Hemoglobin 14.3 g/dL (13.0-17.5) Hematocrit 42.6 % (39.0-53.0) Mean Corpuscular Volume 93 fL (79-100) Mean Corpuscular Hemoglobin 31 pg (25-35) Mean Corpuscular Hemoglobin Concent 34 g/dL (31-37) Red Cell Distribution Width 13.8 % (11.5-14.5) Platelet Count 256 x10^3/uL (140-400) Neutrophils (%) (Auto) 62 % (31-73) Lymphocytes (%) (Auto) 27 % (24-48) Monocytes (%) (Auto) 9 % (0-9) Eosinophils (%) (Auto) 3 % (0-3) Basophils (%) (Auto) 0 % (0-3) Neutrophils # (Auto) 6.4 x10^3uL (1.8-7.7) Lymphocytes # (Auto) 2.8 x10^3/uL (1.0-4.8) Monocytes # (Auto) 0.9 x10^3/uL (0.0-1.1) Eosinophils # (Auto) 0.3 x10^3/uL (0.0-0.7) Basophils # (Auto) 0.0 x10^3/uL (0.0-0.2) Assessment and Plan Assessmemt and Plan wean propofol, plan to extubate, Multivit and thiamine given last night, Problems: Comment Review of Relevant I have reviewed the following items anoop (where applicable) has been applied. Labs Laboratory Tests Test 03/25/17 18:42 03/25/17 18:57 03/25/17 19:39 03/26/17 00:15 White Blood Count 12.3 x10^3/uL (4.0-11.0) Red Blood Count 5.25 x10^6/uL (4.30-5.70) Hemoglobin 16.7 g/dL (13.0-17.5) Hematocrit 48.6 % (39.0-53.0) Mean Corpuscular Volume 93 fL (79-100) Mean Corpuscular Hemoglobin 32 pg (25-35) Mean Corpuscular Hemoglobin Concent 34 g/dL (31-37) Red Cell Distribution Width 13.7 % (11.5-14.5) Platelet Count 294 x10^3/uL (140-400) Neutrophils (%) (Auto) 41 % (31-73) Lymphocytes (%) (Auto) 44 % (24-48) Monocytes (%) (Auto) 11 % (0-9) Eosinophils (%) (Auto) 5 % (0-3) Basophils (%) (Auto) 0 % (0-3) Neutrophils # (Auto) 5.0 x10^3uL (1.8-7.7) Lymphocytes # (Auto) 5.4 x10^3/uL (1.0-4.8) Monocytes # (Auto) 1.3 x10^3/uL (0.0-1.1) Eosinophils # (Auto) 0.6 x10^3/uL (0.0-0.7) Basophils # (Auto) 0.0 x10^3/uL (0.0-0.2) Prothrombin Time 13.0 SEC (11.7-14.0) Prothromb Time International Ratio 1.0 (0.8-1.1) Activated Partial Thromboplast Time 26 SEC (24-38) Sodium Level 147 mmol/L (136-145) Potassium Level 3.7 mmol/L (3.5-5.1) Chloride Level 107 mmol/L (98-107) Carbon Dioxide Level 28 mmol/L (21-32) Anion Gap 12 (6-14) Blood Urea Nitrogen 10 mg/dL (8-26) Creatinine 0.8 mg/dL (0.7-1.3) Estimated GFR (Cockcroft-Gault) 102.3 Glucose Level 95 mg/dL (70-99) Serum Osmolality 426 mOsm/Kg (279-304) Calcium Level 8.7 mg/dL (8.5-10.1) Total Bilirubin 0.2 mg/dL (0.2-1.0) Direct Bilirubin < 0.1 mg/dL (0.0-0.2) Aspartate Amino Transf (AST/SGOT) 34 U/L (15-37) Alanine Aminotransferase (ALT/SGPT) 52 U/L (16-63) Alkaline Phosphatase 66 U/L (46-116) Total Protein 7.4 g/dL (6.4-8.2) Albumin 3.7 g/dL (3.4-5.0) Lipase 286 U/L (73-393) Salicylates Level 6.0 mg/dL (2.8-20.0) Salicylate Last Dose Date Salicylate Last Dose Time Acetaminophen Level < 2 mcg/ml (10-30) Acetaminophen Last Dose Date Acetaminophen Last Dose Time Ethyl Alcohol Level 472 mg/dL (0-10) O2 Saturation 99 % (92-99) 97 % (92-99) Arterial Blood pH 7.26 (7.35-7.45) 7.33 (7.35-7.45) Arterial Blood pCO2 at Patient Temp 59 mmHg (35-46) 44 mmHg (35-46) Arterial Blood pO2 at Patient Temp > 503 mmHg (75-108) 109 mmHg (75-108) Arterial Blood HCO3 26 mmol/L (21-28) 23 mmol/L (21-28) Arterial Blood Base Excess -2 mmol/L (-3-3) -3 mmol/L (-3-3) Oxyhemoglobin 98.1 % Methemoglobin 0.4 % (0.0-1.9) Carbon Monoxide, Quantitative 0.7 % (0.0-1.9) FiO2 100.0 50 Urine Collection Type Unknown Urine Color Yellow Urine Clarity Clear Urine pH 5.5 Urine Specific Excel 1.010 Urine Protein Negative mg/dL (NEG-TRACE) Urine Glucose (UA) Negative mg/dL (NEG) Urine Ketones (Stick) Negative mg/dL (NEG) Urine Blood Negative (NEG) Urine Nitrite Negative (NEG) Urine Bilirubin Negative (NEG) Urine Urobilinogen Dipstick 0.2 mg/dL (0.2 mg/dL) Urine Leukocyte Esterase Negative (NEG) Urine RBC Occ /HPF (0-2) Urine WBC Occ /HPF (0-4) Urine Bacteria 0 /HPF (0-FEW) Urine Mucus Slight /LPF Urine Opiates Screen Neg (NEG) Urine Methadone Screen Neg (NEG) Urine Barbiturates Neg (NEG) Urine Phencyclidine Screen Neg (NEG) Urine Amphetamine/Methamphetamine Neg (NEG) Urine Benzodiazepines Screen Neg (NEG) Urine Cocaine Screen Neg (NEG) Urine Cannabinoids Screen Neg (NEG) Urine Ethyl Alcohol Pos (NEG) Test 03/26/17 07:11 03/26/17 07:40 03/26/17 07:55 Sodium Level 145 mmol/L (136-145) Potassium Level 3.6 mmol/L (3.5-5.1) Chloride Level 110 mmol/L (98-107) Carbon Dioxide Level 24 mmol/L (21-32) Anion Gap 11 (6-14) Blood Urea Nitrogen 12 mg/dL (8-26) Creatinine 0.8 mg/dL (0.7-1.3) Estimated GFR (Cockcroft-Gault) 102.3 BUN/Creatinine Ratio 15 (6-20) Glucose Level 102 mg/dL (70-99) Calcium Level 7.8 mg/dL (8.5-10.1) Total Bilirubin 0.1 mg/dL (0.2-1.0) Aspartate Amino Transf (AST/SGOT) 30 U/L (15-37) Alanine Aminotransferase (ALT/SGPT) 46 U/L (16-63) Alkaline Phosphatase 56 U/L (46-116) Total Protein 6.4 g/dL (6.4-8.2) Albumin 3.1 g/dL (3.4-5.0) Albumin/Globulin Ratio 0.9 (1.0-1.7) O2 Saturation 98 % (92-99) Arterial Blood pH 7.37 (7.35-7.45) Arterial Blood pCO2 at Patient Temp 40 mmHg (35-46) Arterial Blood pO2 at Patient Temp 141 mmHg (75-108) Arterial Blood HCO3 23 mmol/L (21-28) Arterial Blood Base Excess -3 mmol/L (-3-3) FiO2 50 White Blood Count 10.3 x10^3/uL (4.0-11.0) Red Blood Count 4.58 x10^6/uL (4.30-5.70) Hemoglobin 14.3 g/dL (13.0-17.5) Hematocrit 42.6 % (39.0-53.0) Mean Corpuscular Volume 93 fL (79-100) Mean Corpuscular Hemoglobin 31 pg (25-35) Mean Corpuscular Hemoglobin Concent 34 g/dL (31-37) Red Cell Distribution Width 13.8 % (11.5-14.5) Platelet Count 256 x10^3/uL (140-400) Neutrophils (%) (Auto) 62 % (31-73) Lymphocytes (%) (Auto) 27 % (24-48) Monocytes (%) (Auto) 9 % (0-9) Eosinophils (%) (Auto) 3 % (0-3) Basophils (%) (Auto) 0 % (0-3) Neutrophils # (Auto) 6.4 x10^3uL (1.8-7.7) Lymphocytes # (Auto) 2.8 x10^3/uL (1.0-4.8) Monocytes # (Auto) 0.9 x10^3/uL (0.0-1.1) Eosinophils # (Auto) 0.3 x10^3/uL (0.0-0.7) Basophils # (Auto) 0.0 x10^3/uL (0.0-0.2) Laboratory Tests Test 03/25/17 18:42 03/25/17 18:57 03/25/17 19:39 03/26/17 00:15 White Blood Count 12.3 x10^3/uL (4.0-11.0) Red Blood Count 5.25 x10^6/uL (4.30-5.70) Hemoglobin 16.7 g/dL (13.0-17.5) Hematocrit 48.6 % (39.0-53.0) Mean Corpuscular Volume 93 fL (79-100) Mean Corpuscular Hemoglobin 32 pg (25-35) Mean Corpuscular Hemoglobin Concent 34 g/dL (31-37) Red Cell Distribution Width 13.7 % (11.5-14.5) Platelet Count 294 x10^3/uL (140-400) Neutrophils (%) (Auto) 41 % (31-73) Lymphocytes (%) (Auto) 44 % (24-48) Monocytes (%) (Auto) 11 % (0-9) Eosinophils (%) (Auto) 5 % (0-3) Basophils (%) (Auto) 0 % (0-3) Neutrophils # (Auto) 5.0 x10^3uL (1.8-7.7) Lymphocytes # (Auto) 5.4 x10^3/uL (1.0-4.8) Monocytes # (Auto) 1.3 x10^3/uL (0.0-1.1) Eosinophils # (Auto) 0.6 x10^3/uL (0.0-0.7) Basophils # (Auto) 0.0 x10^3/uL (0.0-0.2) Prothrombin Time 13.0 SEC (11.7-14.0) Prothromb Time International Ratio 1.0 (0.8-1.1) Activated Partial Thromboplast Time 26 SEC (24-38) Sodium Level 147 mmol/L (136-145) Potassium Level 3.7 mmol/L (3.5-5.1) Chloride Level 107 mmol/L (98-107) Carbon Dioxide Level 28 mmol/L (21-32) Anion Gap 12 (6-14) Blood Urea Nitrogen 10 mg/dL (8-26) Creatinine 0.8 mg/dL (0.7-1.3) Estimated GFR (Cockcroft-Gault) 102.3 Glucose Level 95 mg/dL (70-99) Serum Osmolality 426 mOsm/Kg (279-304) Calcium Level 8.7 mg/dL (8.5-10.1) Total Bilirubin 0.2 mg/dL (0.2-1.0) Direct Bilirubin < 0.1 mg/dL (0.0-0.2) Aspartate Amino Transf (AST/SGOT) 34 U/L (15-37) Alanine Aminotransferase (ALT/SGPT) 52 U/L (16-63) Alkaline Phosphatase 66 U/L (46-116) Total Protein 7.4 g/dL (6.4-8.2) Albumin 3.7 g/dL (3.4-5.0) Lipase 286 U/L (73-393) Salicylates Level 6.0 mg/dL (2.8-20.0) Salicylate Last Dose Date Salicylate Last Dose Time Acetaminophen Level < 2 mcg/ml (10-30) Acetaminophen Last Dose Date Acetaminophen Last Dose Time Ethyl Alcohol Level 472 mg/dL (0-10) O2 Saturation 99 % (92-99) 97 % (92-99) Arterial Blood pH 7.26 (7.35-7.45) 7.33 (7.35-7.45) Arterial Blood pCO2 at Patient Temp 59 mmHg (35-46) 44 mmHg (35-46) Arterial Blood pO2 at Patient Temp > 503 mmHg (75-108) 109 mmHg (75-108) Arterial Blood HCO3 26 mmol/L (21-28) 23 mmol/L (21-28) Arterial Blood Base Excess -2 mmol/L (-3-3) -3 mmol/L (-3-3) Oxyhemoglobin 98.1 % Methemoglobin 0.4 % (0.0-1.9) Carbon Monoxide, Quantitative 0.7 % (0.0-1.9) FiO2 100.0 50 Urine Collection Type Unknown Urine Color Yellow Urine Clarity Clear Urine pH 5.5 Urine Specific Excel 1.010 Urine Protein Negative mg/dL (NEG-TRACE) Urine Glucose (UA) Negative mg/dL (NEG) Urine Ketones (Stick) Negative mg/dL (NEG) Urine Blood Negative (NEG) Urine Nitrite Negative (NEG) Urine Bilirubin Negative (NEG) Urine Urobilinogen Dipstick 0.2 mg/dL (0.2 mg/dL) Urine Leukocyte Esterase Negative (NEG) Urine RBC Occ /HPF (0-2) Urine WBC Occ /HPF (0-4) Urine Bacteria 0 /HPF (0-FEW) Urine Mucus Slight /LPF Urine Opiates Screen Neg (NEG) Urine Methadone Screen Neg (NEG) Urine Barbiturates Neg (NEG) Urine Phencyclidine Screen Neg (NEG) Urine Amphetamine/Methamphetamine Neg (NEG) Urine Benzodiazepines Screen Neg (NEG) Urine Cocaine Screen Neg (NEG) Urine Cannabinoids Screen Neg (NEG) Urine Ethyl Alcohol Pos (NEG) Test 03/26/17 07:11 03/26/17 07:40 03/26/17 07:55 Sodium Level 145 mmol/L (136-145) Potassium Level 3.6 mmol/L (3.5-5.1) Chloride Level 110 mmol/L (98-107) Carbon Dioxide Level 24 mmol/L (21-32) Anion Gap 11 (6-14) Blood Urea Nitrogen 12 mg/dL (8-26) Creatinine 0.8 mg/dL (0.7-1.3) Estimated GFR (Cockcroft-Gault) 102.3 BUN/Creatinine Ratio 15 (6-20) Glucose Level 102 mg/dL (70-99) Calcium Level 7.8 mg/dL (8.5-10.1) Total Bilirubin 0.1 mg/dL (0.2-1.0) Aspartate Amino Transf (AST/SGOT) 30 U/L (15-37) Alanine Aminotransferase (ALT/SGPT) 46 U/L (16-63) Alkaline Phosphatase 56 U/L (46-116) Total Protein 6.4 g/dL (6.4-8.2) Albumin 3.1 g/dL (3.4-5.0) Albumin/Globulin Ratio 0.9 (1.0-1.7) O2 Saturation 98 % (92-99) Arterial Blood pH 7.37 (7.35-7.45) Arterial Blood pCO2 at Patient Temp 40 mmHg (35-46) Arterial Blood pO2 at Patient Temp 141 mmHg (75-108) Arterial Blood HCO3 23 mmol/L (21-28) Arterial Blood Base Excess -3 mmol/L (-3-3) FiO2 50 White Blood Count 10.3 x10^3/uL (4.0-11.0) Red Blood Count 4.58 x10^6/uL (4.30-5.70) Hemoglobin 14.3 g/dL (13.0-17.5) Hematocrit 42.6 % (39.0-53.0) Mean Corpuscular Volume 93 fL (79-100) Mean Corpuscular Hemoglobin 31 pg (25-35) Mean Corpuscular Hemoglobin Concent 34 g/dL (31-37) Red Cell Distribution Width 13.8 % (11.5-14.5) Platelet Count 256 x10^3/uL (140-400) Neutrophils (%) (Auto) 62 % (31-73) Lymphocytes (%) (Auto) 27 % (24-48) Monocytes (%) (Auto) 9 % (0-9) Eosinophils (%) (Auto) 3 % (0-3) Basophils (%) (Auto) 0 % (0-3) Neutrophils # (Auto) 6.4 x10^3uL (1.8-7.7) Lymphocytes # (Auto) 2.8 x10^3/uL (1.0-4.8) Monocytes # (Auto) 0.9 x10^3/uL (0.0-1.1) Eosinophils # (Auto) 0.3 x10^3/uL (0.0-0.7) Basophils # (Auto) 0.0 x10^3/uL (0.0-0.2) Medications Current Medications Sodium Chloride 1,000 ml @ 1,000 mls/hr 1X ONCE IV Last administered on 03/25 19:00; Start 03/25/17 at 19:00; Stop 03/25/17 at 19:59; Status DC Etomidate (Amidate) 20 mg 1X ONCE IV Last administered on 03/25/17 18:53; Start 03/25/17 at 19:15; Stop 03/25/17 at 19:16; Status DC Succinylcholine Chloride (Anectine) 100 mg 1X ONCE IV Last administered on 18:53; Start 03/25/17 at 19:15; Stop 03/25/17 at 19:16; Status DC Propofol 100 ml @ 0 mls/hr CONT PRN IV PER PROTOCOL Last administered on 07:18; Start 03/25/17 at 19:00 Fentanyl Citrate (Fentanyl 2ml Vial) 25 mcg PRN Q1HR PRN IV see comments; Start 03/25/17 at 19:00 Fentanyl Citrate (Fentanyl 2ml Vial) 50 mcg PRN Q1HR PRN IV see comments; Start 03/25/17 at 19:00 Chlorhexidine Gluconate (Peridex) 15 ml BID MM Last administered on 03/26/17 07:17; Start 03/25/17 at 21:00 Morphine Sulfate 2 mg PRN Q1HR PRN IV see comments; Start 03/25/17 at 19:00 Morphine Sulfate 4 mg PRN Q1HR PRN IV see comments; Start 03/25/17 at 19:00 Multivitamins 10 ml/Thiamine HCl 100 mg/Dextrose/ Sodium Chloride 1,011 ml @ 100 mls/hr QHS IV Last administered on 03/25/17 21:20; Start 03/25/17 at 21: 00 Famotidine (Pepcid Vial) 20 mg BID IVP Last administered on 03/26/17 00:20; Start 03/25/17 at 21:00 Enoxaparin Sodium (Lovenox 40mg Syringe) 40 mg Q24H SQ Last administered on 00:19; Start 03/25/17 at 21:00 Vitals/I & O Vital Sign - Last 24 Hours 03/25/17 03/25/17 03/25/17 03/25/17 18:40 18:44 18:47 18:52 Temp 97.4 97.4 Pulse 87 92 63 59 Resp 16 20 20 20 B/P (MAP) 130/98 (109) 130/98 (109) 123/78 (93) 123/82 (96) Pulse Ox 100 100 100 100 O2 Delivery NonRebreather Mask NonRebreather Mask NonRebreather Mask NonRebreather Mask O2 Flow Rate 15.0 15.0 15.0 15.0 03/25/17 03/25/17 03/25/17 03/25/17 18:57 19:02 19:07 19:12 Pulse 59 61 91 88 Resp 20 20 20 20 B/P (MAP) 143/99 (114) 119/80 (93) 161/100 (120) 127/79 (95) Pulse Ox 100 100 100 100 O2 Delivery Bag Valve Mask Ventilator Ventilator Ventilator O2 Flow Rate 15.0 03/25/17 03/25/17 03/25/17 03/25/17 19:17 19:23 19:27 19:32 Pulse 101 79 82 77 Resp 20 20 20 20 B/P (MAP) 132/97 (109) 106/70 (82) 117/80 (92) 118/77 (91) Pulse Ox 100 100 100 100 O2 Delivery Ventilator Ventilator Ventilator Ventilator 03/25/17 03/25/17 03/25/17 03/25/17 19:37 19:41 19:42 19:47 Pulse 88 69 97 Resp 20 20 20 B/P (MAP) 123/80 (94) 113/66 (82) 150/95 (113) Pulse Ox 100 100 100 100 O2 Delivery Ventilator Ventilator Ventilator Ventilator 03/25/17 03/25/17 03/25/17 03/25/17 19:52 19:57 20:01 20:06 Pulse 68 68 62 62 Resp 20 20 20 20 B/P (MAP) 115/61 (79) 108/67 (81) 110/64 (79) 109/65 (80) Pulse Ox 100 100 100 100 O2 Delivery Ventilator Ventilator Ventilator Ventilator 03/25/17 03/25/17 03/25/17 03/25/17 20:07 20:12 20:17 20:22 Pulse 62 64 62 63 Resp 20 20 20 20 B/P (MAP) 104/65 (78) 106/63 (77) 104/61 (75) 104/61 (75) Pulse Ox 100 100 100 100 O2 Delivery Ventilator Ventilator Ventilator Ventilator 03/25/17 03/25/17 03/25/17 03/25/17 21:00 21:00 22:00 23:00 Temp 97.5 97.7 97.5 97.7 Pulse 69 72 68 Resp 20 20 20 B/P (MAP) 86/57 (67) 80/53 (62) 85/58 (67) Pulse Ox 99 100 100 O2 Delivery Mechanical Ventilator Ventilator Ventilator Ventilator 03/25/17 03/26/17 03/26/17 03/26/17 23:50 00:00 00:00 01:00 Pulse 70 70 Resp 20 20 B/P (MAP) 111/71 (84) 98/65 (76) Pulse Ox 100 98 100 O2 Delivery Ventilator Mechanical Ventilator Ventilator Ventilator 03/26/17 03/26/17 03/26/17 03/26/17 02:00 02:15 03:00 04:00 Temp 98.0 98.0 Pulse 72 74 67 Resp 19 20 20 B/P (MAP) 103/69 (80) 92/58 (69) 95/62 (73) Pulse Ox 100 100 100 100 O2 Delivery Ventilator Ventilator Ventilator Ventilator 03/26/17 03/26/17 03/26/17 03/26/17 04:00 05:00 05:36 06:00 Pulse 87 78 Resp 20 20 B/P (MAP) 97/63 (74) 100/64 (76) Pulse Ox 99 100 99 O2 Delivery Mechanical Ventilator Ventilator Ventilator Ventilator 03/26/17 03/26/17 06:14 07:38 Pulse Ox 100 O2 Delivery Mechanical Ventilator Ventilator O2 Flow Rate 15.0 ADDY BAILEY MD Mar 26, 2017 09:15
[2017-03-26] MEDS ORDERED: IV NORMAL SALINE 1000ML BAG 1,000 ML IV ONE ×2 (09:30→18:15)
[2017-03-26 09:51] LABS: BILIRUBIN,URINE SMALL (NEG); GLUCOSE,URINE NEGATIVE (NEG); NITRITE,URINE NEGATIVE (NEG); PROTEIN,URINE 30 mg/dL (NEG-TRACE); UROBILINOGEN,URINE 0.2 mg/dL (0.2 mg/dL)
[2017-03-26] MEDS ORDERED: cefTRIAXone IV Push 1 GM VIAL. IVP SCH (10:00)
[2017-03-26 10:21] LABS: BACTERIA,URINE FEW /HPF (0-FEW); RBC,URINE >40 /HPF (0-2); WBC,URINE OCC /HPF (0-4)
--- NOTE | 2017-03-26 11:27 | CONS ---
DATE OF CONSULTATION: PULMONARY CONSULTATION ATTENDING PHYSICIAN: Dr. Pelletier. REASON FOR CONSULTATION: Respiratory failure, alcohol intoxication. HISTORY OF PRESENT ILLNESS: The patient is a 51-year-old with history of alcoholism. He presented to the Emergency Department after he was found by EMS unresponsive. He has been drinking a lot of vodka. The patient was not tolerating his secretions and was unable to protect his airway. As a result, he was intubated by the ER staff. The patient's lab values revealed a higher level of alcohol. His arterial blood gases revealed a pH of 7.26, pCO2 of 59 and pO2 of 503 post-intubation on 100% FIO2. His recent ABGs have shown a pH of 7.37, pCO2 of 40 and a pO2 of 141 on 50% FiO2. His sats were still at 100%. His chest x-ray did not reveal any acute infiltrates. PAST MEDICAL HISTORY: History of alcohol abuse. PAST SURGICAL HISTORY: No recent surgeries. ALLERGIES: Not available. MEDICATIONS: Reviewed as listed in the [facility], including antibiotics and multivitamins. PHYSICAL EXAMINATION: GENERAL: On examination, he is intubated and sedated. VITAL SIGNS: Blood pressure is stable, pulse ox is 100%. HEENT: Sclerae nonicteric. NECK: Supple. LUNGS: Clear. CARDIOVASCULAR EXAMINATION: Regular rate and rhythm. ABDOMEN: Soft. EXTREMITIES: With no pitting edema. LABORATORY DATA: Labs are reviewed. ABGs as discussed in my history of present illness. BUN 12, creatinine 0.8. White cell count 10.8, hemoglobin 14.3 and platelets are 256,000. IMPRESSION: 1. Acute respiratory failure secondary to acute toxic encephalopathy. 2. Acute toxic encephalopathy secondary to alcohol abuse and intoxication. RECOMMENDATIONS: 1. Discontinue propofol and assess for mental status. 2. If his mental status improves, then we will put him on the CPAP trial and consider extubation. 3. Empiric antibiotics for now. 4. Deep venous thrombosis prophylaxis. 5. Stress ulcer prophylaxis. 6. Discussed with the patient's RN and RT. Critical care time 30 minutes. LYUBOV SANCHEZ MD DR: IVETTE/julienne JOB#: [id number] / [id number]
[2017-03-26] MEDS ORDERED: HALOPERIDOL LACTATE 5 MG/ML VIAL. IVP PRN (15:45)
[2017-03-26] MEDS ORDERED: cloNIDine HCL 0.1 MG TABLET PO PRN (15:45)
[2017-03-26] MEDS ORDERED: diphenhydrAMINE 50 MG/ML VIAL IVP PRN (15:45)
[2017-03-26] MEDS: IPRATRPIUM/ALBUTEROL 0.5/2.5MG 3 ML NEBU. NEB SCH ×2 (15:57→20:13)
[2017-03-26] MEDS: MULTIVITAMIN with MINERAL TABLET. PO SCH (22:27)
[2017-03-26] MEDS: THIAMINE 100 MG TABLET. PO SCH (22:27)
[2017-03-26] MEDS: FOLIC ACID 1 MG TABLET. PO SCH (22:27)
[2017-03-26] MEDS: LORazepam 1 MG TABLET PO SCH (22:27)
[2017-03-27] VITALS (7 sets, daily range): BP systolic 116–146; BP diastolic 70–90
[2017-03-27] MEDS: CHLORHEXIDINE 0.12% 15 ML MOUTHWASH. MM SCH (07:22)
[2017-03-27] MEDS ORDERED: ONDANSETRON PF 4 MG/2 ML VIAL. IV PRN (07:30)
[2017-03-27] MEDS: IPRATRPIUM/ALBUTEROL 0.5/2.5MG 3 ML NEBU. NEB SCH ×4 (08:19→20:01)
[2017-03-27] MEDS: MULTIVITAMIN with MINERAL TABLET. PO SCH (08:37)
[2017-03-27] MEDS: THIAMINE 100 MG TABLET. PO SCH (08:37)
[2017-03-27] MEDS: FOLIC ACID 1 MG TABLET. PO SCH (08:37)
[2017-03-27] MEDS: FAMOTIDINE 20 MG/2 ML VIAL IVP SCH (08:37)
[2017-03-27] MEDS: LORazepam 1 MG TABLET PO SCH ×2 (08:37→20:12)
[2017-03-27] MEDS ORDERED: CLON1TAB3 PO (10:13)
[2017-03-27] MEDS ORDERED: CYAN1TAB21 PO (10:14)
[2017-03-27] MEDS ORDERED: guaiFENesin DM 200MG/20MG 10 ML SYRUP PO PRN (10:15)
[2017-03-27] MEDS ORDERED: VITAMIN B12,B9,B6 COMPLEX 1 TABLET. PO SCH (10:15)
[2017-03-27] MEDS ORDERED: DEXT30SU19 PO (10:17)
[2017-03-27] MEDS ORDERED: clonazePAM 1 MG TABLET PO ONE (10:30)
[2017-03-27] MEDS ORDERED: NICOTINE 21MG PATCH. TD SCH (11:00)
--- NOTE | 2017-03-27 11:12 | PDOC ---
PULMONARY PROGRESS NOTES Subjective extubated 03/26 on RA Vitals Vital Signs Date Time Temp Pulse Resp B/P (MAP) Pulse Ox O2 Delivery O2 Flow Rate FiO2 03/27/17 08:20 94 Room Air 03/27/17 07:00 98.2 82 22 137/90 (106) 98.2 03/26/17 23:18 General: Alert, No acute distress Lungs: Clear Cardiovascular: S1, S2 Abdomen: Soft Neuro Exam: Alert Extremities: No Edema Labs Laboratory Tests Test 03/25/17 18:42 03/25/17 18:57 03/25/17 19:39 03/25/17 21:21 White Blood Count 12.3 x10^3/uL (4.0-11.0) Red Blood Count 5.25 x10^6/uL (4.30-5.70) Hemoglobin 16.7 g/dL (13.0-17.5) Hematocrit 48.6 % (39.0-53.0) Mean Corpuscular Volume 93 fL (79-100) Mean Corpuscular Hemoglobin 32 pg (25-35) Mean Corpuscular Hemoglobin Concent 34 g/dL (31-37) Red Cell Distribution Width 13.7 % (11.5-14.5) Platelet Count 294 x10^3/uL (140-400) Neutrophils (%) (Auto) 41 % (31-73) Lymphocytes (%) (Auto) 44 % (24-48) Monocytes (%) (Auto) 11 % (0-9) Eosinophils (%) (Auto) 5 % (0-3) Basophils (%) (Auto) 0 % (0-3) Neutrophils # (Auto) 5.0 x10^3uL (1.8-7.7) Lymphocytes # (Auto) 5.4 x10^3/uL (1.0-4.8) Monocytes # (Auto) 1.3 x10^3/uL (0.0-1.1) Eosinophils # (Auto) 0.6 x10^3/uL (0.0-0.7) Basophils # (Auto) 0.0 x10^3/uL (0.0-0.2) Prothrombin Time 13.0 SEC (11.7-14.0) Prothromb Time International Ratio 1.0 (0.8-1.1) Activated Partial Thromboplast Time 26 SEC (24-38) Sodium Level 147 mmol/L (136-145) Potassium Level 3.7 mmol/L (3.5-5.1) Chloride Level 107 mmol/L (98-107) Carbon Dioxide Level 28 mmol/L (21-32) Anion Gap 12 (6-14) Blood Urea Nitrogen 10 mg/dL (8-26) Creatinine 0.8 mg/dL (0.7-1.3) Estimated GFR (Cockcroft-Gault) 102.3 Glucose Level 95 mg/dL (70-99) Serum Osmolality 426 mOsm/Kg (279-304) Calcium Level 8.7 mg/dL (8.5-10.1) Total Bilirubin 0.2 mg/dL (0.2-1.0) Direct Bilirubin < 0.1 mg/dL (0.0-0.2) Aspartate Amino Transf (AST/SGOT) 34 U/L (15-37) Alanine Aminotransferase (ALT/SGPT) 52 U/L (16-63) Alkaline Phosphatase 66 U/L (46-116) Total Protein 7.4 g/dL (6.4-8.2) Albumin 3.7 g/dL (3.4-5.0) Lipase 286 U/L (73-393) Salicylates Level 6.0 mg/dL (2.8-20.0) Salicylate Last Dose Date Salicylate Last Dose Time Acetaminophen Level < 2 mcg/ml (10-30) Acetaminophen Last Dose Date Acetaminophen Last Dose Time Ethyl Alcohol Level 472 mg/dL (0-10) O2 Saturation 99 % (92-99) Arterial Blood pH 7.26 (7.35-7.45) Arterial Blood pCO2 at Patient Temp 59 mmHg (35-46) Arterial Blood pO2 at Patient Temp > 503 mmHg (75-108) Arterial Blood HCO3 26 mmol/L (21-28) Arterial Blood Base Excess -2 mmol/L (-3-3) Oxyhemoglobin 98.1 % Methemoglobin 0.4 % (0.0-1.9) Carbon Monoxide, Quantitative 0.7 % (0.0-1.9) FiO2 100.0 Urine Collection Type Unknown Urine Color Yellow Urine Clarity Clear Urine pH 5.5 Urine Specific [place] 1.010 Urine Protein Negative mg/dL (NEG-TRACE) Urine Glucose (UA) Negative mg/dL (NEG) Urine Ketones (Stick) Negative mg/dL (NEG) Urine Blood Negative (NEG) Urine Nitrite Negative (NEG) Urine Bilirubin Negative (NEG) Urine Urobilinogen Dipstick 0.2 mg/dL (0.2 mg/dL) Urine Leukocyte Esterase Negative (NEG) Urine RBC Occ /HPF (0-2) Urine WBC Occ /HPF (0-4) Urine Bacteria 0 /HPF (0-FEW) Urine Mucus Slight /LPF Urine Opiates Screen Neg (NEG) Urine Methadone Screen Neg (NEG) Urine Barbiturates Neg (NEG) Urine Phencyclidine Screen Neg (NEG) Urine Amphetamine/Methamphetamine Neg (NEG) Urine Benzodiazepines Screen Neg (NEG) Urine Cocaine Screen Neg (NEG) Urine Cannabinoids Screen Neg (NEG) Urine Ethyl Alcohol Pos (NEG) Nasal Screen MRSA (PCR) Negative (Negative) Test 03/26/17 00:15 03/26/17 07:11 03/26/17 07:40 03/26/17 07:55 O2 Saturation 97 % (92-99) 98 % (92-99) Arterial Blood pH 7.33 (7.35-7.45) 7.37 (7.35-7.45) Arterial Blood pCO2 at Patient Temp 44 mmHg (35-46) 40 mmHg (35-46) Arterial Blood pO2 at Patient Temp 109 mmHg (75-108) 141 mmHg (75-108) Arterial Blood HCO3 23 mmol/L (21-28) 23 mmol/L (21-28) Arterial Blood Base Excess -3 mmol/L (-3-3) -3 mmol/L (-3-3) FiO2 50 50 Sodium Level 145 mmol/L (136-145) Potassium Level 3.6 mmol/L (3.5-5.1) Chloride Level 110 mmol/L (98-107) Carbon Dioxide Level 24 mmol/L (21-32) Anion Gap 11 (6-14) Blood Urea Nitrogen 12 mg/dL (8-26) Creatinine 0.8 mg/dL (0.7-1.3) Estimated GFR (Cockcroft-Gault) 102.3 BUN/Creatinine Ratio 15 (6-20) Glucose Level 102 mg/dL (70-99) Calcium Level 7.8 mg/dL (8.5-10.1) Total Bilirubin 0.1 mg/dL (0.2-1.0) Aspartate Amino Transf (AST/SGOT) 30 U/L (15-37) Alanine Aminotransferase (ALT/SGPT) 46 U/L (16-63) Alkaline Phosphatase 56 U/L (46-116) Total Protein 6.4 g/dL (6.4-8.2) Albumin 3.1 g/dL (3.4-5.0) Albumin/Globulin Ratio 0.9 (1.0-1.7) White Blood Count 10.3 x10^3/uL (4.0-11.0) Red Blood Count 4.58 x10^6/uL (4.30-5.70) Hemoglobin 14.3 g/dL (13.0-17.5) Hematocrit 42.6 % (39.0-53.0) Mean Corpuscular Volume 93 fL (79-100) Mean Corpuscular Hemoglobin 31 pg (25-35) Mean Corpuscular Hemoglobin Concent 34 g/dL (31-37) Red Cell Distribution Width 13.8 % (11.5-14.5) Platelet Count 256 x10^3/uL (140-400) Neutrophils (%) (Auto) 62 % (31-73) Lymphocytes (%) (Auto) 27 % (24-48) Monocytes (%) (Auto) 9 % (0-9) Eosinophils (%) (Auto) 3 % (0-3) Basophils (%) (Auto) 0 % (0-3) Neutrophils # (Auto) 6.4 x10^3uL (1.8-7.7) Lymphocytes # (Auto) 2.8 x10^3/uL (1.0-4.8) Monocytes # (Auto) 0.9 x10^3/uL (0.0-1.1) Eosinophils # (Auto) 0.3 x10^3/uL (0.0-0.7) Basophils # (Auto) 0.0 x10^3/uL (0.0-0.2) Test 03/26/17 09:40 Urine Collection Type Unknown Urine Color Kaye Urine Clarity Turbid Urine pH 6.0 Urine Specific [place] >=1.030 Urine Protein 30 mg/dL (NEG-TRACE) Urine Glucose (UA) Negative mg/dL (NEG) Urine Ketones (Stick) Negative mg/dL (NEG) Urine Blood Large (NEG) Urine Nitrite Negative (NEG) Urine Bilirubin Small (NEG) Urine Urobilinogen Dipstick 0.2 mg/dL (0.2 mg/dL) Urine Leukocyte Esterase Negative (NEG) Urine RBC >40 /HPF (0-2) Urine WBC Occ /HPF (0-4) Urine Amorphous Sediment Present /HPF Urine Bacteria Few /HPF (0-FEW) Urine Hyaline Casts Few /HPF Urine Mucus Mod /LPF Medications Active Scripts Medications Dose Route/Sig Max Daily Dose Days Date Category Delsym (Dextromethorphan Polistirex) 30 Mg/5 Ml Chel.er.12h 30 Mg PO Q6HRS PRN 03/27/17 Rx B Complex-Folic Acid Tablet (Cyanocobalamin/Fa/Pyridoxine) 1 Each Tablet 1 Each PO DAILY 03/27/17 Rx Clonazepam 1 Mg Tablet 1 Tab PO DAILY 03/27/17 Rx No Known Medications Prior To Admisstion (Info) Each 1 Each 03/27/17 Reported Impression . 1. Acute respiratory failure secondary to acute toxic encephalopathy. 2. Acute toxic encephalopathy secondary to alcohol abuse and intoxication. Plan . 1. extubated 03/26, on RA 2. stable pulm. status. will sign off LYUBOV SANCHEZ MD Mar 27, 2017 11:12
--- NOTE | 2017-03-27 11:21 | PDOC ---
PROGRESS NOTES Chief Complaint Chief Complaint acute respiratory acidosis acute hypercarbic respiratory failure Acute toxic alcohol intox intubated for airway protection hyper osmolality sec to etoh tobacco use disorder weakness, acquired History of Present Illness History of Present Illness seen in ICU, overflow med monitor Pulmo for vent mx Vent bundle, on propofol, will wean aggressive fluids this AM Vitals Vitals Vital Signs Date Time Temp Pulse Resp B/P (MAP) Pulse Ox O2 Delivery O2 Flow Rate FiO2 03/27/17 08:20 94 Room Air 03/27/17 07:00 98.2 82 22 137/90 (106) 98.2 03/26/17 23:18 Physical Exam Physical Exam intubated General: No acute distress, Other (intubated) Heart: No murmurs Lungs: Clear Abdomen: Normal bowel sounds, Soft, No masses Extremities: No clubbing, No cyanosis, No edema, Normal pulses, No tenderness/ swelling Skin: No rashes, Other (multiple tattoes) Review of Systems Review of Systems weakness shaky nausea, wants to smoke Comment Review of Relevant I have reviewed the following items anoop (where applicable) has been applied. Labs Laboratory Tests Test 03/25/17 18:42 03/25/17 18:57 03/25/17 19:39 03/25/17 21:21 White Blood Count 12.3 x10^3/uL (4.0-11.0) Red Blood Count 5.25 x10^6/uL (4.30-5.70) Hemoglobin 16.7 g/dL (13.0-17.5) Hematocrit 48.6 % (39.0-53.0) Mean Corpuscular Volume 93 fL (79-100) Mean Corpuscular Hemoglobin 32 pg (25-35) Mean Corpuscular Hemoglobin Concent 34 g/dL (31-37) Red Cell Distribution Width 13.7 % (11.5-14.5) Platelet Count 294 x10^3/uL (140-400) Neutrophils (%) (Auto) 41 % (31-73) Lymphocytes (%) (Auto) 44 % (24-48) Monocytes (%) (Auto) 11 % (0-9) Eosinophils (%) (Auto) 5 % (0-3) Basophils (%) (Auto) 0 % (0-3) Neutrophils # (Auto) 5.0 x10^3uL (1.8-7.7) Lymphocytes # (Auto) 5.4 x10^3/uL (1.0-4.8) Monocytes # (Auto) 1.3 x10^3/uL (0.0-1.1) Eosinophils # (Auto) 0.6 x10^3/uL (0.0-0.7) Basophils # (Auto) 0.0 x10^3/uL (0.0-0.2) Prothrombin Time 13.0 SEC (11.7-14.0) Prothromb Time International Ratio 1.0 (0.8-1.1) Activated Partial Thromboplast Time 26 SEC (24-38) Sodium Level 147 mmol/L (136-145) Potassium Level 3.7 mmol/L (3.5-5.1) Chloride Level 107 mmol/L (98-107) Carbon Dioxide Level 28 mmol/L (21-32) Anion Gap 12 (6-14) Blood Urea Nitrogen 10 mg/dL (8-26) Creatinine 0.8 mg/dL (0.7-1.3) Estimated GFR (Cockcroft-Gault) 102.3 Glucose Level 95 mg/dL (70-99) Serum Osmolality 426 mOsm/Kg (279-304) Calcium Level 8.7 mg/dL (8.5-10.1) Total Bilirubin 0.2 mg/dL (0.2-1.0) Direct Bilirubin < 0.1 mg/dL (0.0-0.2) Aspartate Amino Transf (AST/SGOT) 34 U/L (15-37) Alanine Aminotransferase (ALT/SGPT) 52 U/L (16-63) Alkaline Phosphatase 66 U/L (46-116) Total Protein 7.4 g/dL (6.4-8.2) Albumin 3.7 g/dL (3.4-5.0) Lipase 286 U/L (73-393) Salicylates Level 6.0 mg/dL (2.8-20.0) Salicylate Last Dose Date Salicylate Last Dose Time Acetaminophen Level < 2 mcg/ml (10-30) Acetaminophen Last Dose Date Acetaminophen Last Dose Time Ethyl Alcohol Level 472 mg/dL (0-10) O2 Saturation 99 % (92-99) Arterial Blood pH 7.26 (7.35-7.45) Arterial Blood pCO2 at Patient Temp 59 mmHg (35-46) Arterial Blood pO2 at Patient Temp > 503 mmHg (75-108) Arterial Blood HCO3 26 mmol/L (21-28) Arterial Blood Base Excess -2 mmol/L (-3-3) Oxyhemoglobin 98.1 % Methemoglobin 0.4 % (0.0-1.9) Carbon Monoxide, Quantitative 0.7 % (0.0-1.9) FiO2 100.0 Urine Collection Type Unknown Urine Color Yellow Urine Clarity Clear Urine pH 5.5 Urine Specific [place] 1.010 Urine Protein Negative mg/dL (NEG-TRACE) Urine Glucose (UA) Negative mg/dL (NEG) Urine Ketones (Stick) Negative mg/dL (NEG) Urine Blood Negative (NEG) Urine Nitrite Negative (NEG) Urine Bilirubin Negative (NEG) Urine Urobilinogen Dipstick 0.2 mg/dL (0.2 mg/dL) Urine Leukocyte Esterase Negative (NEG) Urine RBC Occ /HPF (0-2) Urine WBC Occ /HPF (0-4) Urine Bacteria 0 /HPF (0-FEW) Urine Mucus Slight /LPF Urine Opiates Screen Neg (NEG) Urine Methadone Screen Neg (NEG) Urine Barbiturates Neg (NEG) Urine Phencyclidine Screen Neg (NEG) Urine Amphetamine/Methamphetamine Neg (NEG) Urine Benzodiazepines Screen Neg (NEG) Urine Cocaine Screen Neg (NEG) Urine Cannabinoids Screen Neg (NEG) Urine Ethyl Alcohol Pos (NEG) Nasal Screen MRSA (PCR) Negative (Negative) Test 03/26/17 00:15 03/26/17 07:11 03/26/17 07:40 03/26/17 07:55 O2 Saturation 97 % (92-99) 98 % (92-99) Arterial Blood pH 7.33 (7.35-7.45) 7.37 (7.35-7.45) Arterial Blood pCO2 at Patient Temp 44 mmHg (35-46) 40 mmHg (35-46) Arterial Blood pO2 at Patient Temp 109 mmHg (75-108) 141 mmHg (75-108) Arterial Blood HCO3 23 mmol/L (21-28) 23 mmol/L (21-28) Arterial Blood Base Excess -3 mmol/L (-3-3) -3 mmol/L (-3-3) FiO2 50 50 Sodium Level 145 mmol/L (136-145) Potassium Level 3.6 mmol/L (3.5-5.1) Chloride Level 110 mmol/L (98-107) Carbon Dioxide Level 24 mmol/L (21-32) Anion Gap 11 (6-14) Blood Urea Nitrogen 12 mg/dL (8-26) Creatinine 0.8 mg/dL (0.7-1.3) Estimated GFR (Cockcroft-Gault) 102.3 BUN/Creatinine Ratio 15 (6-20) Glucose Level 102 mg/dL (70-99) Calcium Level 7.8 mg/dL (8.5-10.1) Total Bilirubin 0.1 mg/dL (0.2-1.0) Aspartate Amino Transf (AST/SGOT) 30 U/L (15-37) Alanine Aminotransferase (ALT/SGPT) 46 U/L (16-63) Alkaline Phosphatase 56 U/L (46-116) Total Protein 6.4 g/dL (6.4-8.2) Albumin 3.1 g/dL (3.4-5.0) Albumin/Globulin Ratio 0.9 (1.0-1.7) White Blood Count 10.3 x10^3/uL (4.0-11.0) Red Blood Count 4.58 x10^6/uL (4.30-5.70) Hemoglobin 14.3 g/dL (13.0-17.5) Hematocrit 42.6 % (39.0-53.0) Mean Corpuscular Volume 93 fL (79-100) Mean Corpuscular Hemoglobin 31 pg (25-35) Mean Corpuscular Hemoglobin Concent 34 g/dL (31-37) Red Cell Distribution Width 13.8 % (11.5-14.5) Platelet Count 256 x10^3/uL (140-400) Neutrophils (%) (Auto) 62 % (31-73) Lymphocytes (%) (Auto) 27 % (24-48) Monocytes (%) (Auto) 9 % (0-9) Eosinophils (%) (Auto) 3 % (0-3) Basophils (%) (Auto) 0 % (0-3) Neutrophils # (Auto) 6.4 x10^3uL (1.8-7.7) Lymphocytes # (Auto) 2.8 x10^3/uL (1.0-4.8) Monocytes # (Auto) 0.9 x10^3/uL (0.0-1.1) Eosinophils # (Auto) 0.3 x10^3/uL (0.0-0.7) Basophils # (Auto) 0.0 x10^3/uL (0.0-0.2) Test 03/26/17 09:40 Urine Collection Type Unknown Urine Color Kaye Urine Clarity Turbid Urine pH 6.0 Urine Specific [place] >=1.030 Urine Protein 30 mg/dL (NEG-TRACE) Urine Glucose (UA) Negative mg/dL (NEG) Urine Ketones (Stick) Negative mg/dL (NEG) Urine Blood Large (NEG) Urine Nitrite Negative (NEG) Urine Bilirubin Small (NEG) Urine Urobilinogen Dipstick 0.2 mg/dL (0.2 mg/dL) Urine Leukocyte Esterase Negative (NEG) Urine RBC >40 /HPF (0-2) Urine WBC Occ /HPF (0-4) Urine Amorphous Sediment Present /HPF Urine Bacteria Few /HPF (0-FEW) Urine Hyaline Casts Few /HPF Urine Mucus Mod /LPF Medications Current Medications Sodium Chloride 1,000 ml @ 1,000 mls/hr 1X ONCE IV Last administered on 03/25 19:00; Start 03/25/17 at 19:00; Stop 03/25/17 at 19:59; Status DC Etomidate (Amidate) 20 mg 1X ONCE IV Last administered on 03/25/17 18:53; Start 03/25/17 at 19:15; Stop 03/25/17 at 19:16; Status DC Succinylcholine Chloride (Anectine) 100 mg 1X ONCE IV Last administered on 18:53; Start 03/25/17 at 19:15; Stop 03/25/17 at 19:16; Status DC Propofol 100 ml @ 0 mls/hr CONT PRN IV PER PROTOCOL Last administered on 10:55; Start 03/25/17 at 19:00; Stop 03/26/17 at 21:17; Status DC Fentanyl Citrate (Fentanyl 2ml Vial) 25 mcg PRN Q1HR PRN IV see comments; Start 03/25/17 at 19:00 Fentanyl Citrate (Fentanyl 2ml Vial) 50 mcg PRN Q1HR PRN IV see comments; Start 03/25/17 at 19:00 Chlorhexidine Gluconate (Peridex) 15 ml BID MM Last administered on 03/26/17 07:17; Start 03/25/17 at 21:00; Stop 03/27/17 at 09:33; Status DC Morphine Sulfate 2 mg PRN Q1HR PRN IV see comments; Start 03/25/17 at 19:00 Morphine Sulfate 4 mg PRN Q1HR PRN IV see comments; Start 03/25/17 at 19:00 Multivitamins 10 ml/Thiamine HCl 100 mg/Dextrose/ Sodium Chloride 1,011 ml @ 100 mls/hr QHS IV Last administered on 03/25/17 21:20; Start 03/25/17 at 21: 00; Stop 03/26/17 at 21:15; Status DC Famotidine (Pepcid Vial) 20 mg BID IVP Last administered on 03/27/17 08:37; Start 03/25/17 at 21:00; Stop 03/27/17 at 09:35; Status DC Enoxaparin Sodium (Lovenox 40mg Syringe) 40 mg Q24H SQ Last administered on 22:26; Start 03/25/17 at 21:00 Potassium Chloride/Sodium Chloride 1,000 ml @ 200 mls/hr 1X ONCE IV Last administered on 03/26/17 09:46; Start 03/26/17 at 09:15; Stop 03/26/17 at 14 :14; Status DC Albuterol/ Ipratropium (Duoneb) 3 ml RTQID NEB Last administered on 03/27/17 08:19; Start 03/26/17 at 12:00 Ceftriaxone Sodium 1 gm/ Dextrose 50 ml @ 100 mls/hr Q24H IV ; Start 03/26/17 at 09:30; Status UNV Sodium Chloride 1,000 ml @ 1,000 mls/hr 1X ONCE IV Last administered on 03/26 09:45; Start 03/26/17 at 09:30; Stop 03/26/17 at 10:29; Status DC Ceftriaxone Sodium (Rocephin) 1 gm Q24H IVP ; Start 03/26/17 at 10:00; Status Cancel Ceftriaxone Sodium 1 gm/ Dextrose 50 ml @ 100 mls/hr Q24H IV Last administered on 03/26/17 09:45; Start 03/26/17 at 10:00; Stop 03/27/17 at 10 :12; Status DC Lorazepam (Ativan) 2 mg PRN Q1HR PRN IV For CIWA 8-14; Start 03/26/17 at 15:45 Lorazepam (Ativan) 4 mg PRN Q1HR PRN IV For CIWA 15 or greater; Start at 15:45 Haloperidol Lactate (Haldol) 5 mg PRN Q4HRS PRN IVP Hallucinatns,Confusn, Delirium; Start 03/26/17 at 15:45 Diphenhydramine HCl (Benadryl) 25 mg PRN Q15MIN PRN IVP EPS symptoms 2'Haldol admin; Start 03/26/17 at 15:45 Clonidine HCl (Catapres) 0.1 mg PRN Q1HR PRN PO SBP > 180 or DBP > 100, MRX3; Start 03/26/17 at 15:45 Lorazepam (Ativan) 1 mg BID PO Last administered on 03/27/17 08:37; Start at 21:00 Lorazepam (Ativan) 2 mg 1X ONCE IV Last administered on 03/26/17 16:04; Start 03/26/17 at 16:00; Stop 03/26/17 at 16:01; Status DC Sodium Chloride 1,000 ml @ 1,000 mls/hr 1X ONCE IV Last administered on 03/26 18:38; Start 03/26/17 at 18:15; Stop 03/26/17 at 19:14; Status DC Multivitamins (Thera M Plus) 1 tab DAILY PO Last administered on 03/27/17 08: 37; Start 03/26/17 at 21:30 Thiamine Mononitrate (Vitamin B-1) 100 mg DAILY PO Last administered on 08:37; Start 03/26/17 at 21:30 Folic Acid (Folic Acid) 1 mg DAILY PO Last administered on 03/27/17 08:37; Start 03/26/17 at 21:30 Ceftriaxone Sodium (Rocephin) 1 gm Q24H IVP ; Start 03/28/17 at 10:00 Ondansetron HCl (Zofran) 4 mg PRN Q6HRS PRN IV NAUSEA/VOMITING Last administered on 03/27/17 07:33; Start 03/27/17 at 07:30 Famotidine (Pepcid) 20 mg BID PO ; Start 03/27/17 at 21:00 Guaifenesin (Robitussin Dm) 10 ml PRN Q6HRS PRN PO COUGH; Start 03/27/17 at 10 :15 Vitamin B Complex (Folbic Tablet) 1 tab DAILY PO Last administered on 10:46; Start 03/27/17 at 10:15 Clonazepam (KlonoPIN) 2 mg 1X ONCE PO Last administered on 03/27/17 10:46; Start 03/27/17 at 10:30; Stop 03/27/17 at 10:31; Status DC Nicotine (Nicoderm Cq 21mg) 1 patch DAILY TD Last administered on 03/27/17 10 :46; Start 03/27/17 at 11:00 Active Scripts Active Delsym (Dextromethorphan Polistirex) 30 Mg/5 Ml Chel.er.12h 30 Mg PO Q6HRS PRN B Complex-Folic Acid Tablet (Cyanocobalamin/Fa/Pyridoxine) 1 Each Tablet 1 Each PO DAILY Clonazepam 1 Mg Tablet 1 Tab PO DAILY Reported No Known Medications Prior To Admisstion (Info) Each 1 Each Vitals/I & O Vital Sign - Last 24 Hours 03/26/17 03/26/17 03/26/17 03/26/17 12:00 12:00 13:55 15:00 Temp 98.6 98.6 98.6 98.6 98.6 98.6 Pulse 99 99 99 Resp 24 16 B/P (MAP) 140/72 (94) 135/80 (98) 135/80 (98) Pulse Ox 98 98 98 O2 Delivery Nasal Cannula Nasal Cannula Nasal Cannula Nasal Cannula O2 Flow Rate 2.0 2.0 2.0 2.0 03/26/17 03/26/17 03/26/17 03/26/17 15:58 16:16 16:17 19:00 Temp 98.6 100.0 98.6 100.0 Pulse 105 90 Resp 18 B/P (MAP) 135/80 (98) 121/71 (88) Pulse Ox 96 96 95 O2 Delivery Nasal Cannula Nasal Cannula Nasal Cannula Room Air O2 Flow Rate 2.0 2.0 2.0 03/26/17 03/26/17 03/26/17 03/27/17 19:36 20:14 23:18 03:09 Temp 99.5 99.0 99.5 99.0 Pulse 90 75 Resp 18 18 B/P (MAP) 104/66 (79) 146/77 (100) Pulse Ox 95 95 95 O2 Delivery Room Air Room Air Room Air Room Air O2 Flow Rate 03/27/17 03/27/17 03/27/17 07:00 08:00 08:20 Temp 98.2 98.2 Pulse 82 Resp 22 B/P (MAP) 137/90 (106) Pulse Ox 94 94 O2 Delivery Room Air Room Air Room Air Intake and Output 03/26/17 03/26/17 03/27/17 15:00 23:00 07:00 Intake Total 0 ml Output Total 40 ml 925 ml 200 ml Balance -40 ml -925 ml -200 ml ADDY BAILEY MD Mar 27, 2017 11:21
[2017-03-27] MEDS ORDERED: cefTRIAXone IV Push 1 GM VIAL. IVP SCH (20:00)
[2017-03-27] MEDS: ENOXAPARIN 40 MG/0.4 ML SYRINGE. SQ SCH (20:24)
[2017-03-27] MEDS ORDERED: FAMOTIDINE 20 MG TABLET. PO SCH (21:00)
[2017-03-28 04:00] VITALS: BP 132/87
[2017-03-28] MEDS: IPRATRPIUM/ALBUTEROL 0.5/2.5MG 3 ML NEBU. NEB SCH (08:00)
--- NOTE | 2017-03-28 10:06 | PDOC3 ---
Discharge Summary Visit Information Date of Admission: Mar 25, 2017 Date of Discharge: Mar 28, 2017 Admitting Diagnosis: toxic encephalopathy Admitting Diagnosis Comment: respiratory failure Final Diagnosis acute respiratory acidosis acute hypercarbic respiratory failure Acute toxic alcohol intox intubated for airway protection hyper osmolality secondary to etoh tobacco use disorder toxic encephalopathy on admit, weakness, acquired hypernatremia on admit very dehydrated, urine sediment from this, no UTI, Brief Hospital Course Allergies Allergies Coded Allergies Type Severity Reaction Last Updated Verified No Known Drug Allergies 03/27/17 No Vital Signs Vital Signs Date Time Temp Pulse Resp B/P (MAP) Pulse Ox O2 Delivery O2 Flow Rate FiO2 03/28/17 04:00 97.9 69 18 132/87 (102) 96 Room Air 97.9 Brief Hospital Course Mr. Mon is a 51 old male, admit marked EtOH intox,. found by landlord, too intoxicated to walk EtOH level 472 Ph 7.2 range, acute acidosis, resp depressoin intubated in ER, Pulm consult, weaned off and extubated, then EtoH withdrawl, unsteady and weak, benzos, agressive vitamins supps pt left AMA 03/28 near 7 am Discharge Information Condition at Discharge: Improved Disposition/Orders: D/C to Home, Other (AMA) Scheduled Clonazepam (Clonazepam), 1 TAB PO DAILY Cyanocobalamin/Fa/Pyridoxine (B Complex-Folic Acid Tablet), 1 EACH PO DAILY Scheduled PRN Dextromethorphan Polistirex (Delsym), 30 MG PO Q6HRS PRN for COUGH Miscellaneous Medications Info (No Known Medications Prior To Admisstion), 1 EACH , (Reported) Patient Instructions Patient Instructions no face to face today < 30 min ADDY BAILEY MD Mar 28, 2017 10:06
== END 2017-03-28 10:39 | disposition left against medical advice (07) | DRG 208 ==
LOC: ER 18:39 → 1 WEST ICU 19:40
PROVIDERS: ADMIT Internal Medicine; ATTEND Internal Medicine
PROC: 5A1935Z Respiratory Ventilation, Less than 24 Consecutive Hours (ICD-10-PCS; principal; 2017-03-25)
PROC: 0BH17EZ Insertion of Endotracheal Airway into Trachea, Via Natural or Artificial Opening (ICD-10-PCS; 2017-03-25)
DX: J96.02 Acute respiratory failure with hypercapnia (principal); G92 Toxic encephalopathy; E87.0 Hyperosmolality and hypernatremia; E87.2 Acidosis; F10.239 Alcohol dependence with withdrawal, unspecified; F10.129 Alcohol abuse with intoxication, unspecified; E86.0 Dehydration; G31.2 Degeneration of nervous system due to alcohol; Y90.8 Blood alcohol level of 240 mg/100 ml or more; Z72.0 Tobacco use; F10.229 Alcohol dependence with intoxication, unspecified; Y92.89 Other specified places as the place of occurrence of the external cause; Z53.21 Procedure and treatment not carried out due to patient leaving prior to being seen by health care provider
CPT/HCPCS: 31500; 36415; 36600; 51702; 70450; 71010; 80048; 80053; 80076; 80307; 80329; 81001; 82805; 83690; 83930; 85025; 85610; 85730; 87641; 93005; 94002; 94003; 94250; 94640; 96361; 96374; 96375; G0480; J0330; J0696; J1650; J2060; J2405; J2704; J7030; J7620; S0028; 99291-25; G0479